=== PATIENT | male | born 1945 | race Caucasian/White ===

== ENCOUNTER 2021-07-07 20:32 | Inpatient (IN) | payer MEDICARE, OTHER ==
[~2021-07-07] VITALS: Ht 167.6 cm; Wt 106.0 kg
[2021-07-07 23:30] LABS: Lymphocytes # (auto) 1.3 10 ^3/uL (0.4-5.4); Monocytes # (auto) 0.5 10 ^3/uL (0-1.3); Neutrophils # (auto) 4.8 10 ^3/uL (1.6-8.6)
[2021-07-07 23:31] LABS: Basophils # (auto) 0 10 ^3/uL (0-0.2); Basophils % (auto) 0.5 % (0.0-2.0); Eosinophils # (auto) 0 10 ^3/uL (0-0.8); Eosinophils % (auto) 0.5 % (0.0-7.0); Hematocrit 35.1 % (41.0-53.0); Hemoglobin 10.3 g/dL (13.5-17.5); Lymphocytes % (auto) 19.6 % (10.0-50.0); Mean Corpuscular Hemoglobin 20.9 pg (28.0-32.0); Mean Corpuscular Hgb Conc. 29.4 g/dL (32.0-36.0); Mean Corpuscular Volume 71.1 fL (80.0-100.0); Neutrophils % (auto) 71.4 % (37.0-80.0); Nucleated Red Blood Cells % 0.1 %; Red Blood Cells 4.94 10^6/uL (4.5-5.90); Red Cell Distribution Width 20.1 % (11.8-14.3); White Blood Cell 6.8 10^3/uL (4.4-10.8)
[2021-07-07 23:39] LABS: INR 1.37 (0.9-1.15)
[2021-07-07 23:56] LABS: Alanine Aminotransferase 16 U/L (16-61); Albumin 2.3 g/dL (3.4-5.0); Anion Gap 3 (5-15); Aspartate Aminotransferase 12 U/L (15-37); Blood Urea Nitrogen 26 mg/dL (7-18); Calcium 8.6 mg/dL (8.5-10.1); Carbon Dioxide 31 mmol/L (21-32); Chloride 107 mmol/L (98-107); GFR African American 81 mL/min; GFR Non-African American 67 mL/min; Glucose 100 mg/dL (74-106); Magnesium 2.3 mg/dL (1.6-2.6); Potassium 4.9 mmol/L (3.5-5.1); Sodium 141 mmol/L (136-145)
[2021-07-08 00:01] LABS: Alkaline Phosphatase 65 U/L (45-117); Bilirubin, Total 0.4 mg/dL (0.2-1.0); Total Protein 7.4 g/dL (6.4-8.2)
[2021-07-08] MEDS ORDERED: IOHEXOL 300 MG/ML 100ML BOTTLE IJ ONE (00:48)
[2021-07-08] MEDS ORDERED: METOPROLOL TARTRATE 25 MG TAB PO ONE (03:45)
[2021-07-08] MEDS ORDERED: MORPHINE SULFATE INJECTION 2 MG/ML SYRG IV PRN (03:45)
[2021-07-08] MEDS ORDERED: NITROGLYCERIN 0.4 MG SL TAB SL PRN (03:45)
[2021-07-08] MEDS ORDERED: ONDANSETRON HCL 4 MG/2 ML VIAL IV PRN (03:45)
[2021-07-08] MEDS ORDERED: ACETAMINOPHEN 325 MG TAB PO PRN (03:45)
[2021-07-08] MEDS ORDERED: TEMAZEPAM 15 MG CAP PO ONE ×2 (04:15→21:15)
[2021-07-08 09:26] VITALS: BP 105/46
[2021-07-08] MEDS ORDERED: ENOXAPARIN SOD 40 MG/0.4 ML SYRINGE SC SCH (10:00)
[2021-07-08] MEDS ORDERED: FUROSEMIDE 40 MG/4 ML VIAL IV ONE (11:00)
[2021-07-08 13:09] VITALS: BP 114/71
[2021-07-08] MEDS ORDERED: AMIODARONE HCL 200 MG TAB PO ONE (13:30)
[2021-07-08] MEDS: ASPirin 81 mg TAB PO SCH (13:38)
[2021-07-08] MEDS: DOCUSATE SOD 100 MG CAP PO SCH ×2 (13:39→22:00)
[2021-07-08] MEDS: METOPROLOL TARTRATE 25 MG TAB PO SCH ×2 (13:40→22:00)
[2021-07-08] MEDS: PANTOPRAZOLE 40 MG TAB PO SCH (13:40)
[2021-07-08 14:14] LABS: Cholesterol 112 mg/dL (< 200)
[2021-07-08 14:17] LABS: HDL Cholesterol 49 mg/dL (40-59); LDL Cholesterol 57 mg/dL (< 100); Triglycerides 79 mg/dL (< 150)
[2021-07-08] MEDS: FUROSEMIDE 40 MG/4 ML VIAL IV SCH (17:56)
[2021-07-08 17:57] VITALS: BP 145/73
[2021-07-08 18:47] VITALS: BP 132/72
[2021-07-08] MEDS ORDERED: LORazepam 2MG/ML-1ML VIAL IV ONE (21:00)
[2021-07-08 22:00] VITALS: BP 109/62
[2021-07-08] MEDS: AMIODARONE HCL 200 MG TAB PO SCH (22:00)
[2021-07-08] MEDS: SACUBITRIL-VALSARTAN 24mg/26mg TAB PO SCH (22:00)
[2021-07-08] MEDS: APIXABAN 5 MG TAB PO SCH (22:00)
[2021-07-09 05:00] VITALS: BP 126/67
[2021-07-09] MEDS: FUROSEMIDE 40 MG/4 ML VIAL IV SCH ×2 (06:35→18:34)
[2021-07-09 07:10] LABS: Basophils # (auto) 0.1 10 ^3/uL (0-0.2); Basophils % (auto) 0.6 % (0.0-2.0); Eosinophils # (auto) 0.1 10 ^3/uL (0-0.8); Eosinophils % (auto) 0.7 % (0.0-7.0); Hematocrit 39.1 % (41.0-53.0); Hemoglobin 11.2 g/dL (13.5-17.5); Lymphocytes # (auto) 1.8 10 ^3/uL (0.4-5.4); Lymphocytes % (auto) 21.2 % (10.0-50.0); Mean Corpuscular Hemoglobin 20.4 pg (28.0-32.0); Mean Corpuscular Hgb Conc. 28.6 g/dL (32.0-36.0); Mean Corpuscular Volume 71.3 fL (80.0-100.0); Monocytes # (auto) 0.6 10 ^3/uL (0-1.3); Monocytes % (auto) 6.9 % (0.0-12.0); Neutrophils # (auto) 5.9 10 ^3/uL (1.6-8.6); Neutrophils % (auto) 70.6 % (37.0-80.0); Nucleated Red Blood Cells % 0.1 %; Red Blood Cells 5.48 10^6/uL (4.5-5.90); White Blood Cell 8.3 10^3/uL (4.4-10.8)
[2021-07-09 07:11] LABS: Red Cell Distribution Width 20.2 % (11.8-14.3)
[2021-07-09 07:28] LABS: Calcium 8.7 mg/dL (8.5-10.1); Potassium 4.2 mmol/L (3.5-5.1)
[2021-07-09 07:34] LABS: Albumin 2.5 g/dL (3.4-5.0); BUN/Creatinine Ratio 23.1; Bilirubin, Total 0.5 mg/dL (0.2-1.0); Total Protein 7.6 g/dL (6.4-8.2)
[2021-07-09 09:00] VITALS: BP 87/52
[2021-07-09] MEDS: ASPirin 81 mg TAB PO SCH (10:57)
[2021-07-09] MEDS: DOCUSATE SOD 100 MG CAP PO SCH ×2 (10:58→20:27)
[2021-07-09] MEDS: AMIODARONE HCL 200 MG TAB PO SCH ×2 (10:58→20:28)
[2021-07-09] MEDS: APIXABAN 5 MG TAB PO SCH ×2 (10:59→20:28)
[2021-07-09] MEDS: SACUBITRIL-VALSARTAN 24mg/26mg TAB PO SCH ×2 (10:59→20:28)
[2021-07-09] MEDS: PANTOPRAZOLE 40 MG TAB PO SCH (11:00)
[2021-07-09] MEDS: METOPROLOL TARTRATE 25 MG TAB PO SCH ×2 (11:00→20:41)
[2021-07-09 13:00] VITALS: BP 84/52
[2021-07-09 17:00] VITALS: BP 98/57
[2021-07-09] MEDS: DOBUTamine 1000MCG/ML 250 ML IV SCH (18:34)
[2021-07-09 22:00] VITALS: BP 127/68
[2021-07-09] MEDS ORDERED: TEMAZEPAM 15 MG CAP PO ONE (22:30)
[2021-07-10] MEDS ORDERED: MECL25TA18 PO (03:47)
[2021-07-10] MEDS ORDERED: OMEP20TA PO (04:02)
[2021-07-10] MEDS ORDERED: ESOM1CAP12 PO (04:02)
[2021-07-10] MEDS ORDERED: AMIO200T43 PO (04:02)
[2021-07-10] MEDS ORDERED: POTA-220 PO ×2 (04:02)
[2021-07-10] MEDS ORDERED: TRAV0.00 EACHEYE (04:02)
[2021-07-10] MEDS ORDERED: METO-289 PO (04:02)
[2021-07-10] MEDS ORDERED: ASPI-543 PO (04:02)
[2021-07-10] MEDS ORDERED: DIGO0.12 PO (04:02)
[2021-07-10] MEDS ORDERED: APIX5TAB PO (04:02)
[2021-07-10] MEDS ORDERED: FURO40TA4 PO (04:02)
[2021-07-10 05:00] VITALS: BP 127/50
[2021-07-10] MEDS: FUROSEMIDE 40 MG/4 ML VIAL IV SCH (06:34)
[2021-07-10] MEDS: DOBUTamine 1000MCG/ML 250 ML IV SCH (08:00)
[2021-07-10 09:00] VITALS: BP 119/59
[2021-07-10] MEDS: PANTOPRAZOLE 40 MG TAB PO SCH (09:36)
[2021-07-10] MEDS: APIXABAN 5 MG TAB PO SCH (09:36)
[2021-07-10] MEDS: DOCUSATE SOD 100 MG CAP PO SCH (09:36)
[2021-07-10] MEDS: SACUBITRIL-VALSARTAN 24mg/26mg TAB PO SCH (09:36)
[2021-07-10] MEDS: ASPirin 81 mg TAB PO SCH (09:36)
[2021-07-10] MEDS: AMIODARONE HCL 200 MG TAB PO SCH (09:36)
[2021-07-10] MEDS: METOPROLOL TARTRATE 25 MG TAB PO SCH (09:37)
[2021-07-10 09:46] LABS: BUN/Creatinine Ratio 23.1; Calcium 8.2 mg/dL (8.5-10.1); Potassium 3.9 mmol/L (3.5-5.1)
[2021-07-10] MEDS ORDERED: ATORVASTATIN 20 MG TAB PO SCH (22:00)
== END 2021-07-10 15:49 | disposition left against medical advice (07) | DRG 291 ==
LOC: ER 20:32 → TELE 07-08 03:41 → TELE-CENTR 07-08 08:00
PROVIDERS: ADMIT Nurse Practitioner; ATTEND Internal Medicine
PROC: 0W993ZZ Drainage of Right Pleural Cavity, Percutaneous Approach (ICD-10-PCS; principal; 2021-07-08)
DX: I11.0 Hypertensive heart disease with heart failure (principal); I50.23 Acute on chronic systolic (congestive) heart failure; E44.0 Moderate protein-calorie malnutrition; D68.59 Other primary thrombophilia; J91.8 Pleural effusion in other conditions classified elsewhere; E66.9 Obesity, unspecified; Z53.29 Procedure and treatment not carried out because of patient's decision for other reasons; R73.03 Prediabetes; I48.0 Paroxysmal atrial fibrillation; Z68.37 Body mass index [BMI] 37.0-37.9, adult; Z71.3 Dietary counseling and surveillance; Z20.822 Contact with and (suspected) exposure to COVID-19
CPT/HCPCS: 36415; 71045; 74018; 74177; 76604; 76942; 80048; 80053; 80061; 82306; 83036; 83605; 83735; 83880; 84443; 84484; 85025; 85610; 87205; 87426; 93005; 93306; 93970; 96374; 96375; G0378